=== PATIENT | male | born 1970 | race Caucasian/White ===

== ENCOUNTER → 2018-05-08 | Outpatient (CLI) | payer OTHER | LOC: HYPER 05-02 15:18 | DX: S81.812A Laceration without foreign body, left lower leg, initial encounter (principal); L02.416 Cutaneous abscess of left lower limb; L08.9 Local infection of the skin and subcutaneous tissue, unspecified; I89.0 Lymphedema, not elsewhere classified; E11.40 Type 2 diabetes mellitus with diabetic neuropathy, unspecified; M79.662 Pain in left lower leg; X58.XXXA Exposure to other specified factors, initial encounter; Y93.89 Activity, other specified; Y92.89 Other specified places as the place of occurrence of the external cause; Y99.8 Other external cause status ==

== ENCOUNTER → 2018-05-31 | Outpatient (CLI) | payer OTHER | LOC: HYPER 05-24 06:47 | DX: S81.812D Laceration without foreign body, left lower leg, subsequent encounter (principal); L08.9 Local infection of the skin and subcutaneous tissue, unspecified; E11.40 Type 2 diabetes mellitus with diabetic neuropathy, unspecified; I89.0 Lymphedema, not elsewhere classified; W17.2XXD Fall into hole, subsequent encounter ==

== ENCOUNTER → 2018-06-14 | Outpatient (CLI) | payer OTHER | LOC: HYPER 06:54 | DX: S81.812D Laceration without foreign body, left lower leg, subsequent encounter (principal); L08.9 Local infection of the skin and subcutaneous tissue, unspecified; E11.40 Type 2 diabetes mellitus with diabetic neuropathy, unspecified; I89.0 Lymphedema, not elsewhere classified; W17.2XXD Fall into hole, subsequent encounter ==

== ENCOUNTER → 2018-07-05 | Outpatient (CLI) | payer OTHER | LOC: HYPER 06:33 | DX: S81.812D Laceration without foreign body, left lower leg, subsequent encounter (principal); L08.9 Local infection of the skin and subcutaneous tissue, unspecified; L02.416 Cutaneous abscess of left lower limb; E11.40 Type 2 diabetes mellitus with diabetic neuropathy, unspecified; I89.0 Lymphedema, not elsewhere classified; W17.2XXD Fall into hole, subsequent encounter ==

== ENCOUNTER → 2018-07-19 | Outpatient (CLI) | payer OTHER | LOC: HYPER 06:56 | DX: S81.812D Laceration without foreign body, left lower leg, subsequent encounter (principal); L08.9 Local infection of the skin and subcutaneous tissue, unspecified; L02.416 Cutaneous abscess of left lower limb; E11.40 Type 2 diabetes mellitus with diabetic neuropathy, unspecified; I89.0 Lymphedema, not elsewhere classified; W17.2XXD Fall into hole, subsequent encounter ==

== ENCOUNTER → 2018-08-02 | Outpatient (CLI) | payer OTHER | LOC: HYPER 07:37 | DX: S81.812D Laceration without foreign body, left lower leg, subsequent encounter (principal); L08.9 Local infection of the skin and subcutaneous tissue, unspecified; L02.416 Cutaneous abscess of left lower limb; E11.40 Type 2 diabetes mellitus with diabetic neuropathy, unspecified; I89.0 Lymphedema, not elsewhere classified; W17.2XXD Fall into hole, subsequent encounter ==